=== PATIENT | female | born 1960 | race Hispanic/Latino ===

== ENCOUNTER 2018-01-31 06:27 | Day surgery (SDC) | payer OTHER ==
[2018-01-28 10:18] VITALS: BP 160/77
[2018-01-28 10:28] LABS: BASOPHILS % (AUTO) 0.5 % (0.0-5.0); EOSINOPHILS % (AUTO) 1.5 % (0.0-8.0); HEMATOCRIT 46.5 % (36-48); MEAN CORPUSCULAR HEMOGLOBIN 30.3 pg (27.0-33.0); MEAN CORPUSCULAR VOLUME 89.1 fL (79-99); MONOCYTES % (AUTO) 11.4 % (3.0-13.0); NEUTROPHILS % (AUTO) 55.6 % (40.0-77.0); NUCLEATED RED BLOOD CELLS 0.1 % (0.0-0.19); PLATELET COUNT (AUTO) 141 K/uL (130-400); RED BLOOD CELL COUNT(AUTO) 5.22 MIL/uL (4.00-5.50); RED CELL DISTRIBUTION WIDTH 12.7 % (11.0-15.5); WHITE BLOOD COUNT (AUTO) 5.1 K/uL (4.8-10.8)
[2018-01-28 10:31] LABS: APPEARANCE,URINE Cloudy (CLEAR); BILIRUBIN,URINE Negative (NEGATIVE); COLOR,URINE Dark Yellow (YELLOW); GLUCOSE, URINE (UA) Negative (NEGATIVE); KETONES,URINE Negative (NEGATIVE); LEUKOCYTE ESTERASE ,URINE Small (NEGATIVE); NITRATE,URINE Negative (NEGATIVE); OCCULT BLOOD,URINE Trace (NEGATIVE); PH,URINE 5.5 (5.0-8.0); PROTEIN,URINE POS 1+ (NEGATIVE)
[2018-01-28 10:37] LABS: BACTERIA,URINE Moderate /HPF (None Seen); MUCUS,URINE Moderate LPF (None Seen); RBC,URINE 0-1 /HPF (0-1); SQUAMOUS EPITHELIAL CELL,UR Few /HPF (0-2)
[2018-01-28 10:39] LABS: CREATININE 0.8 mg/dL (0.5-1.5); POTASSIUM 3.5 mmol/L (3.5-5.1)
[2018-01-28 10:48] LABS: INR 0.93 (0.85-1.15); PROTHROMBIN TIME 9.8 SEC (9.6-11.6)
[~2018-01-31] VITALS: Ht 160 cm; Wt 83.5 kg
[2018-01-31] VITALS (17 sets, daily range): BP systolic 126–149; BP diastolic 61–89
[2018-01-31] MEDS: CEFTRIAXONE SODIUM 1 GM IVP SCH ×2 (05:00→08:30)
[~2018-01-31 06:27] MED LIST: FLAX100031 PO; OMEG100014 PO; VITA100C24 PO
[2018-01-31] MEDS ORDERED: SODIUM CHLORIDE 0.9% 1000ML 1,000 ML IV ONE (07:13)
[2018-01-31] MEDS ORDERED: LIDOCAINE PF 2% 5ML ABBOJECT ONE (07:51)
[2018-01-31] MEDS ORDERED: ONDANSETRON HCL 4 MG/2 ML VIAL ONE (07:51)
[2018-01-31] MEDS ORDERED: PROPOFOL 10 MG/ML 20ML VIAL IV ONE (07:51)
[2018-01-31] MEDS ORDERED: DEXAMETHASONE SOD PHOSPHATE 10MG/ML 1ML VIAL ONE (07:51)
[2018-01-31] MEDS ORDERED: MIDAZOLAM HCL 1 MG/ML 2ML VIAL ONE (07:51)
[2018-01-31] MEDS ORDERED: FENTANYL CITRATE PF 50 MCG/1 ML 2ML VIAL ONE (07:52)
[2018-01-31] MEDS ORDERED: RACEPINEPHRINE HCL 2.25% 0.5 ML NEB SOLN ONE (09:56)
== END 2018-01-31 11:35 | disposition home or self-care (01) ==
LOC: DAH 06:27
PROVIDERS: ATTEND Urology
DX: N20.0 Calculus of kidney (principal); Z98.890 Other specified postprocedural states; E66.9 Obesity, unspecified
CPT/HCPCS: 36415; 50590; 74018; 80048; 81001; 85025; 85610; 87088; 93005; 94640; A4510; J0696; J1100; J2001; J2250; J2405; J2704; J3010; J7030

== ENCOUNTER 2018-02-14 07:40 | Day surgery (SDC) | payer OTHER ==
[2018-02-12 16:41] LABS: APPEARANCE,URINE Clear (CLEAR); BILIRUBIN,URINE Negative (NEGATIVE); COLOR,URINE Yellow (YELLOW); GLUCOSE, URINE (UA) Negative (NEGATIVE); KETONES,URINE Negative (NEGATIVE); LEUKOCYTE ESTERASE ,URINE Trace (NEGATIVE); NITRATE,URINE Negative (NEGATIVE); OCCULT BLOOD,URINE Moderate (NEGATIVE); PH,URINE 6.5 (5.0-8.0); PROTEIN,URINE Negative (NEGATIVE); UROBILINOGEN,URINE 0.2 mg/dL (0.2-1.0)
[2018-02-12 16:56] VITALS: BP 168/76
[2018-02-12 16:57] LABS: BACTERIA,URINE Rare /HPF (None Seen); SQUAMOUS EPITHELIAL CELL,UR Few /HPF (0-2)
[2018-02-14] VITALS (17 sets, daily range): BP systolic 142–182; BP diastolic 75–89
[~2018-02-14] VITALS: Ht 162.6 cm; Wt 84.8 kg
[2018-02-14] MEDS: CEFTRIAXONE SODIUM 1 GM IVP SCH ×2 (06:00→08:35)
[~2018-02-14 07:40] MED LIST changes: +FLAX SEED OIL PO; -FLAX100031 PO; -OMEG100014 PO; +OMEGA 3 PO
[2018-02-14] MEDS ORDERED: LIDOCAINE PF 2% 5ML ABBOJECT ONE ×3 (08:39→09:52)
[2018-02-14] MEDS ORDERED: MIDAZOLAM HCL 1 MG/ML 2ML VIAL ONE (08:39)
[2018-02-14] MEDS ORDERED: DEXAMETHASONE SOD PHOSPHATE 10MG/ML 1ML VIAL ONE (08:39)
[2018-02-14] MEDS ORDERED: ONDANSETRON HCL 4 MG/2 ML VIAL ONE (08:39)
[2018-02-14] MEDS ORDERED: FENTANYL CITRATE PF 50 MCG/1 ML 2ML VIAL ONE ×2 (08:40→09:11)
[2018-02-14] MEDS ORDERED: GLYCOPYRROLATE 1 MG/5 ML SYRINGE ONE (08:40)
[2018-02-14] MEDS ORDERED: PROPOFOL 10 MG/ML 20ML VIAL IV ONE (08:40)
[2018-02-14] MEDS ORDERED: ROCURONIUM 10MG/1ML SYR 10 MG/ML ML ONE (08:40)
[2018-02-14] MEDS ORDERED: NEOSTIGMINE 5MG/5ML SYR IV ONE (08:40)
[2018-02-14] MEDS ORDERED: IOHEXOL-350 50ML VIAL IV ONE (08:42)
[2018-02-14] MEDS ORDERED: LACTATED RINGERS 1000ML 1,000 ML IV ONE (08:55)
== END 2018-02-14 11:26 | disposition home or self-care (01) ==
LOC: DAH 07:40
PROVIDERS: ATTEND Urology
DX: N20.1 Calculus of ureter (principal); Z98.890 Other specified postprocedural states
CPT/HCPCS: 52356; 76000; 81001; 87088; A4218; A4354; A4358; A4649; C1758; C1769; C1894; C2617; J0696; J1100; J2001 ×2; J2250; J2405; J2704; J2710; J3010 ×2; J3490; J7030; J7120; Q9967